=== PATIENT | female | born 1970 ===

== ENCOUNTER 2021-06-10 04:38 | Emergency (ER) | payer MEDICAID, OTHER ==
[~2021-06-10] VITALS: Ht 154.9 cm; Wt 83.5 kg
[2021-06-10 07:25] VITALS: BP 131/63
== END 2021-06-10 07:21 | disposition home or self-care (01) ==
LOC: ER 04:38
DX: T83.038A Leakage of other urinary catheter, initial encounter (principal); I10 Essential (primary) hypertension; E11.9 Type 2 diabetes mellitus without complications; E78.5 Hyperlipidemia, unspecified; Z90.710 Acquired absence of both cervix and uterus
CPT/HCPCS: 51702